=== PATIENT | female | born 1965 | race Caucasian/White ===

== ENCOUNTER 2017-01-24 11:21 | Emergency (ER) | payer MEDICARE, OTHER ==
[2017-01-24 11:36] VITALS: BP 147/91
[2017-01-24] MEDS ORDERED: ALPRAZolam 0.25 MG TABLET PO ONE (12:02)
[2017-01-24] MEDS ORDERED: ALPRAZolam 0.25 MG TABLET ONE (12:03)
--- NOTE | 2017-01-24 12:27 | ERNOTE ---
Psychological HPI - Date Date of Service: 01/24/17 - General Chief Complaint: Psychiatric Problem Source: Reports: patient Exam Limitations: Reports: no limitations - Immun/Allergies/Home Medications Allergies/Adverse Reactions: Allergies codeine Allergy (Verified 11/27/15 19:44) Home Medications: HOME MEDICATIONS Hydrocodone Bit/Acetaminophen [Hydrocodon-Acetaminophen 5-325] 1 each PO QID 07/12 [Last Taken Unknown] Fluticasone/Salmeterol [Advair 250-50 Diskus] 1 puff IH BID 10/11/15 [Last Taken Unknown] Ipratropium/Albuterol Sulfate [Combivent Respimat Inhal [place]] 1 puff IH QID [Last Taken Unknown] Levothyroxine Sodium [Synthroid] 125 mcg PO DAILY 10/11/15 [Last Taken Unknown] Pregabalin [Lyrica] 300 mg PO BID 10/11/15 [Last Taken Unknown] HYDROcodone/ACETAMINOPHEN [[place] 5-325 Tablet] 1 tab PO Q6H PRN #20 tab [Last Taken Unknown] predniSONE [Prednisone] 3 tab PO DAILY #9 tab 11/27/15 [Last Taken Unknown] Albuterol Sulfate [Proair Hfa] 1 - 2 puff IH Q4H PRN #1 inhaler 03/30/16 [Last Taken Unknown] Doxycycline Hyclate [Vibratab] 100 mg PO BID #20 tab 03/30/16 [Last Taken Unknown] predniSONE [Prednisone] 1 tab PO TID #15 tab 03/30/16 [Last Taken Unknown] Hydroxyzine HCl 50 mg PO Q6H PRN #12 tablet 01/24/17 [Last Taken Unknown] - History of Present Illness Narrative: 52yo, F, presents to ER for anxiety over the last several days. Her 11yo grandson had been staying with her recently. States she is very OCD and likes things to be a certain way, she is not feeling frustrated with the grandson, but more with her children. She is under care of [facility], Nicole Burkett is with her today. States they felt she needed something for her anxiety, but did not have any PRN rx. Pt states Lisa Mai's office was contacted and they advised she had been discharged from the office. She states she is very upset by this, as she has not seen Lisa Mai and does not know how she could be discharged from the office. She does admit to being discharged from Dr. Wagner's office in the past. She denies any feelings of self harm or harm to others, when asked about this states "I have grandkids I love very much , I'm not doing that shit." She has received Xanax in the past, when tx in [place] with good relief of anxiety symptoms. Time Seen by Provider: 01/24/17 11:45 Intent: Denies: suicide Associated Symptoms: Reports: agitated. Denies: hallucinating, suicidal thoughts - Patient's Past Medical History Patient History - Medical: Arthritis, Depression, Hypothyroidism Patient History - Cardiac/Respiratory: COPD Patient History - Cancer: Skin Patient History - Surgical Procedures: Hysterectomy, Total Knee Replacement Patient History - Other: None LMP (females 10-50): Menopausal - Social History Living Situations: home Abuse History: No History of abuse Psych History: Hx of Anxiety, Hx of Depression, Hx of Schizophrenia Smoking Status: Current every day smoker Have you smoked in the past 12 months: Yes Alcohol Use: none Drug Use: none - Immunizations Immunizations Up to Date: Yes Hx Pneumococcal Vaccination: No History of Influenza Vaccine: No Physical Exam - Physical Exam General Appearance: Present: wd/wn, alert, irritable Eye Exam: Normal inspection: bilateral, PERRL: bilateral, EOMI: bilateral, Eye drainage: bilateral, Eyelid inflammation: bilateral Neck: Present: normal inspection, nontender Respiratory: Present: no respiratory distress, wheezing - mild faint. 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 Pt states she is feeling improved and would like to go home. Discussed that Lisa Mai's office was closed for lunch. Pt states she wants to go home and does not want to wait for office to open to discuss options. Rechecked feelings of self harm and harm to others, she continues to deny. Advised to f/u with Dr. Alexander, until able to establish with psych. Pt verbalized understanding. - Results and Orders Patient's Lab Results:: I have reviewed the patient's lab results. - Vital Signs Patient's Vital Signs:: I have reviewed the patient's vital signs. Vital Signs: Vital Signs 01/24/17 11:25 Temperature 36.8 C Pulse Rate 95 Respiratory 16 Rate Blood Pressure 147/91 O2 Sat by Pulse 98 Oximetry - Progress/Reassessment Chief Complaint: Psychiatric Problem Departure Clinical Impression: Anxiety - Departure Disposition: Home self-care Condition: Good Instructions: Panic Attacks, [id number] Print Language: Ecuadorean Additional Instructions: Recommend establishing care with a psychiatric office. Please follow up with your primary care doctor for recheck and medication management until you are able to get in with a psychiatric office. Return to ER immediately if symptoms worsen or you have feelings of self harm or harm to others Referrals: Jorden Alexander MD [Primary Care Provider] - Prescriptions: Hydroxyzine HCl 50 mg PO Q6H PRN #12 tablet PRN Reason: Anxiety
== END 2017-01-24 12:42 | disposition home or self-care (01) ==
LOC: ER 11:21
DX: F41.9 Anxiety disorder, unspecified (principal)

== ENCOUNTER 2017-02-19 15:23 | Emergency (ER) | payer MEDICARE, OTHER ==
[2017-02-19] MEDS ORDERED: ALBUTEROL SULFATE/IPRATROPIUM 3 ML NEBU IH ONE ×2 (15:33→15:40)
[2017-02-19] MEDS ORDERED: HYDROmorphone HCL 1 MG/ML DISP.SYRIN IV ONE (15:37)
[2017-02-19] MEDS ORDERED: LORazepam 2 MG/ML DISP.SYRIN IV ONE (15:37)
[2017-02-19] MEDS ORDERED: LORazepam 2 MG/ML DISP.SYRIN ONE (15:40)
[2017-02-19] MEDS ORDERED: HYDROmorphone HCL 1 MG/ML DISP.SYRIN ONE (15:40)
[2017-02-19 15:51] LABS: Hematocrit 41.4 % (37.0-47.0); Hemoglobin 13.9 gm/dL (12.5-16.0); Mean Cell Volume 90.8 fl (78-100); Mean Corpuscular Hemoglobin 30.5 pg (27-31); Mean Corpuscular Hgb Conc 33.6 g/dl (32-36); Mean Platelet Volume 10.7 fl (6.0-9.5); Neutrophil # 3.7 K/mm3 (1.3-6.0); Neutrophil % 56.2 % (42-75.0); Platelet Count 172 K/mm3 (150-450); Red Blood Count 4.56 M/mm3 (4.2-5.4); White Blood Count 6.6 K/mm3 (4.0-10.5)
[2017-02-19 16:08] LABS: ALT 13 U/L (19-67); AST 14 U/L (0-48); Albumin * 3.5 gm/dl (3.4-5.0); Alkaline Phosphatase * 63 U/L (50-170); Anion Gap 7.9 mmol/L (6.8-13.8); Bilirubin, Total 0.3 mg/dL (0.0-1.1); Blood Urea Nitrogen 6 mg/dL (3-23); Ca. Corrected For Albumin 8.8 mg/dL (8.4-10.2); Calcium * 8.7 mg/dL (7.9-10.9); Carbon Dioxide 32.2 mmol/L (24-32.6); Chloride 109 mmol/L (97-106); Glucose * 93 mg/dL (70-110); Potassium 4.1 mmol/L (3.4-4.6); Sodium 145 mmol/L (132-142); Total Protein 6.6 gm/dL (6.2-8.2); Troponin I Less than 0.017 ng/ml (0.00-0.10)
[2017-02-19 17:43] VITALS: BP 139/96
--- NOTE | 2017-02-19 17:43 | ERNOTE ---
Chest Pain/Cardiac HPI Date of Service: 02/19/17 Chief Complaint: Chest Pain Time Seen by Provider: 02/19/17 15:28 Source: patient Exam Limitations: no limitations Immunizations: IMMUNIZATION HX Immunizations Up to Date Yes History of Influenza Vaccine No Hx Pneumococcal Vaccination No Allergies/Adverse Reactions: Allergies codeine Allergy (Verified 02/19/17 15:32) Home Medications: HOME MEDICATIONS Hydrocodone Bit/Acetaminophen [Hydrocodon-Acetaminophen 5-325] 1 each PO QID 07/12 [Last Taken Unknown] Fluticasone/Salmeterol [Advair 250-50 Diskus] 1 puff IH BID 10/11/15 [Last Taken Unknown] Ipratropium/Albuterol Sulfate [Combivent Respimat Inhal [place]] 1 puff IH QID [Last Taken Unknown] Levothyroxine Sodium [Synthroid] 125 mcg PO DAILY 10/11/15 [Last Taken Unknown] Pregabalin [Lyrica] 300 mg PO BID 10/11/15 [Last Taken Unknown] HYDROcodone/ACETAMINOPHEN [[place] 5-325 Tablet] 1 tab PO Q6H PRN #20 tab [Last Taken Unknown] predniSONE [Prednisone] 3 tab PO DAILY #9 tab 11/27/15 [Last Taken Unknown] Albuterol Sulfate [Proair Hfa] 1 - 2 puff IH Q4H PRN #1 inhaler 03/30/16 [Last Taken Unknown] Doxycycline Hyclate [Vibratab] 100 mg PO BID #20 tab 03/30/16 [Last Taken Unknown] predniSONE [Prednisone] 1 tab PO TID #15 tab 03/30/16 [Last Taken Unknown] Hydroxyzine HCl 50 mg PO Q6H PRN #12 tablet 01/24/17 [Last Taken Unknown] HYDROcodone/ACETAMINOPHEN [[place] 10-325 Tablet] 1 each PO Q12H PRN #15 tablet [Last Taken Unknown] Narrative: Patient presents to the ED with right sided CP after a fall. She relates she has frequent falls and fell yesterday onto her right chest, hitting a counter. She has been having pain right chest ever since then. The pain began with a traumatic injury to the chest. It has been constant since yesterday. She relates it hurts to touch her chest and to cough. She does not have any pain medications at home. She has not seen anyone else for this. She relates chronic orthopedic pains. No fever. No head injury or other injuries. Chronic neck and back pain, no different from usual. Pain can be severe, especially with palpation and cough. No abdominal pain. Timing: constant Severity/Quality: sharp Location: other - right chest Chest Pain Radiation: no radiation Activities at Onset: other - fall Modifying Factors - Improves: Present: nothing Modifying Factors - Worsens: Present: coughing, other - palpation Associated Symptoms: Absent: syncope, fever/chills, vomiting, abdominal pain, weakness Prior Treatment: Denies: recently seen Review of Systems - Review of Systems Constitutional: Absent: fever EYE: Present: no symptoms reported ENT: Present: no symptoms reported Respiratory: Present: cough Cardiology: Present: See HPI Gastrointestinal/Abdominal: Absent: abdominal pain Genitourinary: Absent: dysuria Musculoskeletal: Present: other - chronic orthopedic pains. All Other Systems: All systems neg except as marked - Patient's Past Medical History Patient History - Medical: Arthritis, Depression, Hypothyroidism Patient History - Cardiac/Respiratory: COPD Patient History - Cancer: Skin Patient History - Surgical Procedures: Hysterectomy, Total Knee Replacement Patient History - Other: None - Social History Living Situations: home Abuse History: No History of abuse Psych History: Hx of Anxiety, Hx of Depression, Hx of Schizophrenia Alcohol Use: none Drug Use: none - Immunizations Immunizations Up to Date: Yes Hx Pneumococcal Vaccination: No History of Influenza Vaccine: No Physical Exam - Physical Exam General Appearance: Present: wd/wn, alert, other - distress secondary to pain with palpation of ribs on right side of chest. Eye Exam: Normal inspection: bilateral Ears, Nose, Throat: Present: normal ENT inspection Neck: Present: normal inspection Respiratory: Present: no respiratory distress, no accessory muscle use, chest tenderness, other - mild scattered wheezes. There is clearly reproducible tenderness right chest wall. Palpation of the chest wall where she fell completely reproduces her pain and the Sx she presents for. Cardiovascular/Chest: Present: regular rate, rhythm, normal peripheral pulses Gastrointestinal/Abdominal: Present: normal bowel sounds, nontender, soft, no organomegaly. Absent: tenderness Extremity Exam: Present: other - no DVT findings Neurological Exam: Present: alert, normal mood/affect, no motor/sensory deficits Skin Exam: Present: other - no lacerations or bruising ED Progress - Results and Orders Patient's Lab Results:: I have reviewed the patient's lab results. - Vital Signs Patient's Vital Signs:: I have reviewed the patient's vital signs. Vital Signs: Vital Signs 02/19/17 02/19/17 02/19/17 15:27 15:36 15:49 Temperature 36.8 C Pulse Rate 110 H 102 H 95 Respiratory 22 H 24 H Rate Blood Pressure 142/91 125/73 O2 Sat by Pulse 92 95 Oximetry 02/19/17 02/19/17 02/19/17 15:51 16:09 16:40 Temperature Pulse Rate 96 97 89 Respiratory 24 H 22 H 18 Rate Blood Pressure 127/81 123/85 O2 Sat by Pulse 91 92 Oximetry 02/19/17 17:10 Temperature Pulse Rate 78 Respiratory 15 Rate Blood Pressure 125/79 O2 Sat by Pulse 98 Oximetry - EKG EKG read: Reviewed by me EKG Comments: Sinus tach rate 105. non-specific ST/T wave changes, no STEMI. - X-Ray X-Ray #1 X-Ray: chest Interpretation: Reviewed by me X-ray Comments: Reviewed radiology report. No acute process. - Progress/Reassessment Chief Complaint: Chest Pain Progress:: Improved Progress Note-Subjective: 02/19/17 17:38 No suggestion of PTX, PE, ACS or other acute life threat. Constant pain over 1 day with no STEMI and no trop elevation. Nothing to suggest ACS. D-dimer in normal range, clinically nothign too suggest PE or aortic dissection. No indication for CT. Clinically this is all musculoskeletal pain from her fall without apparent complication. Patient states she can take hydrocodone without reaction or allergy. 02/19/17 17:42 Departure - Departure Clinical Impression: Chest wall pain Disposition: Home self-care Condition: Stable Instructions: Chest Wall Pain, [id number] Additional Instructions: Rest. Follow-up with primary doctor this week. No driving with pain medications. Return for trouble breathing, fever or if your condition worsens or changes in any way. Prescriptions: HYDROcodone/ACETAMINOPHEN [[place] 10-325 Tablet] 1 each PO Q12H PRN #15 tablet PRN Reason: Pain
== END 2017-02-19 17:49 | disposition home or self-care (01) ==
LOC: ER 15:23
DX: R07.89 Other chest pain (principal); Z85.828 Personal history of other malignant neoplasm of skin; E03.9 Hypothyroidism, unspecified

== ENCOUNTER 2017-02-21 11:22 | Emergency (ER) | payer MEDICARE, OTHER ==
[2017-02-21 11:34] VITALS: BP 178/99
[2017-02-21] MEDS ORDERED: ONDANSETRON 4 MG TAB.RAPDIS PO ONE (11:51)
--- NOTE | 2017-02-21 11:59 | ERNOTE ---
Medical Problem HPI - Narrative Date of Service: 02/21/17 - General Chief Complaint: General Assessment Time Seen by Provider: 02/21/17 11:37 Source: patient, RN notes reviewed, old records Exam Limitations: other - difficulty giving a clear history - Immun/Allergies/Home Medications Immunizations: IMMUNIZATION HX Immunizations Up to Date Yes History of Influenza Vaccine No Hx Pneumococcal Vaccination No Allergies/Adverse Reactions: Allergies codeine Allergy (Verified 02/21/17 11:34) Home Medications: HOME MEDICATIONS Hydrocodone Bit/Acetaminophen [Hydrocodon-Acetaminophen 5-325] 1 each PO QID 07/12 [Last Taken Unknown] Fluticasone/Salmeterol [Advair 250-50 Diskus] 1 puff IH BID 10/11/15 [Last Taken Unknown] Ipratropium/Albuterol Sulfate [Combivent Respimat Inhal [place]] 1 puff IH QID [Last Taken Unknown] Levothyroxine Sodium [Synthroid] 125 mcg PO DAILY 10/11/15 [Last Taken Unknown] Pregabalin [Lyrica] 300 mg PO BID 10/11/15 [Last Taken Unknown] HYDROcodone/ACETAMINOPHEN [[place] 5-325 Tablet] 1 tab PO Q6H PRN #20 tab [Last Taken Unknown] predniSONE [Prednisone] 3 tab PO DAILY #9 tab 11/27/15 [Last Taken Unknown] Albuterol Sulfate [Proair Hfa] 1 - 2 puff IH Q4H PRN #1 inhaler 03/30/16 [Last Taken Unknown] Doxycycline Hyclate [Vibratab] 100 mg PO BID #20 tab 03/30/16 [Last Taken Unknown] predniSONE [Prednisone] 1 tab PO TID #15 tab 03/30/16 [Last Taken Unknown] Hydroxyzine HCl 50 mg PO Q6H PRN #12 tablet 01/24/17 [Last Taken Unknown] HYDROcodone/ACETAMINOPHEN [[place] 10-325 Tablet] 1 each PO Q12H PRN #15 tablet [Last Taken Unknown] - History of Present History Narrative: 52 y/o female ambulatory to the ED for an "allergic reaction." She noticed that she had red, circular lesions on her chest and abdomen that were irritated this morning. She was seen here 2 days ago for chest pain. She had EKG electrodes in these locations at that time. She also reports having the same symptoms that she was having 2 days ago. She contacted her PCP and her pharmacy regarding the lesions and her other symptoms (nausea, headache, and dizziness - which she reports that she has most of the time) and was told to come here because she was having an allergic reaction. She was started on Prazosin last week. Review of Systems - Review of Systems Constitutional: Present: fatigue, malaise EYE: Present: no symptoms reported ENT: Absent: nose congestion, throat swelling Respiratory: Present: cough. Absent: shortness of breath, wheezing, stridor Cardiology: Absent: palpitations, syncope Gastrointestinal/Abdominal: Present: nausea, eating less, drinking less. Absent : vomiting, diarrhea Genitourinary: Present: no symptoms reported Musculoskeletal: Present: muscle pain, neck pain. Absent: joint pain Skin: Present: lesions. Absent: rash, lumps Neurological: Present: headache, dizziness/light-headedness Endocrine: Present: no symptoms reported Hematologic/Lymphatic: Present: no symptoms reported Psych: Present: emotional problems - Patient's Past Medical History Patient History - Medical: Arthritis, Depression, Hypothyroidism Patient History - Cardiac/Respiratory: COPD Patient History - Cancer: Skin Patient History - Surgical Procedures: Hysterectomy, Total Knee Replacement Patient History - Other: None LMP (females 10-50): Menopausal - Social History Living Situations: home Abuse History: No History of abuse Psych History: Hx of Anxiety, Hx of Depression, Hx of Schizophrenia Smoking Status: Current every day smoker Alcohol Use: none Drug Use: none - Immunizations Immunizations Up to Date: Yes Hx Pneumococcal Vaccination: No History of Influenza Vaccine: No Physical Exam - Physical Exam General Appearance: Present: alert, anxious, thin, other - disheveled, unable to lay still Eye Exam: Normal inspection: bilateral, PERRL: bilateral Ears, Nose, Throat: Present: normal ENT inspection Neck: Present: normal inspection, supple, full range of motion, tender lateral. Absent: tender posterior midline Respiratory: Present: no respiratory distress, no accessory muscle use, rhonchi - scattered Cardiovascular/Chest: Present: regular rate, rhythm, no murmur, normal peripheral pulses Gastrointestinal/Abdominal: Present: nontender, nondistended, soft Extremity Exam: Present: normal inspection, normal range of motion, no edema Neurological Exam: Present: alert, oriented, no motor/sensory deficits. Absent : normal mood/affect Skin Exam: Present: normal color, warm/dry, other - Circular excoriations at the sites of EKG patches from previous visit ED Progress - Vital Signs Patient's Vital Signs:: I have reviewed the patient's vital signs. Vital Signs: Vital Signs 02/21/17 11:30 Temperature 36.9 C Pulse Rate 78 Respiratory 19 Rate Blood Pressure 178/99 O2 Sat by Pulse 97 Oximetry - Progress/Reassessment Chief Complaint: General Assessment Progress:: Unchanged Departure - Departure Clinical Impression: Medication side effects Contact dermatitis due to adhesives Qualifiers: Contact dermatitis type: unspecified Qualified Code(s): L23.1 - Allergic contact dermatitis due to adhesives Disposition: Home Follow Up Needed Condition: Stable Instructions: Drug Allergy, [id number] Additional Instructions: Stop Prazosin (minipress) until you see your doctor Use Cortisone 10 cream for skin irritation See information regarding drug allergy - this is NOT what you are experiencing Referrals: Jorden Alexander MD [Primary Care Provider] -
[2017-02-21] MEDS ORDERED: ONDANSETRON 4 MG TAB.RAPDIS ONE (12:11)
== END 2017-02-21 12:14 | disposition home or self-care (01) ==
LOC: ER 11:22
DX: T44.6X5A Adverse effect of alpha-adrenoreceptor antagonists, initial encounter (principal); L23.1 Allergic contact dermatitis due to adhesives; Z72.0 Tobacco use; Z85.828 Personal history of other malignant neoplasm of skin

== ENCOUNTER 2017-07-16 09:20 | Emergency (ER) | payer MEDICARE, OTHER ==
[2017-07-16 09:31] VITALS: BP 149/70
[2017-07-16] MEDS ORDERED: HYDROmorphone HCL 1 MG/ML DISP.SYRIN IM ONE (09:42)
[2017-07-16] MEDS ORDERED: HYDROmorphone HCL 1 MG/ML DISP.SYRIN ONE (09:50)
--- NOTE | 2017-07-16 10:49 | ERNOTE ---
Back Pain ER HPI Date of Service: 07/16/17 Presenting Symptoms: injury/pain to back, hx chronic back pain Time Seen by Provider: 07/16/17 09:35 Exam Limitations: no limitations Immunizations: IMMUNIZATION HX Immunizations Up to Date Yes History of Influenza Vaccine No Hx Pneumococcal Vaccination No Allergies/Adverse Reactions: Allergies codeine Allergy (Verified 07/16/17 09:31) Home Medications: HOME MEDICATIONS Fluticasone/Salmeterol [Advair 250-50 Diskus] 1 puff IH BID 10/11/15 [Last Taken Unknown] Ipratropium/Albuterol Sulfate [Combivent Respimat [place]] 1 puff IH QID [Last Taken Unknown] Levothyroxine Sodium [Synthroid] 125 mcg PO DAILY 10/11/15 [Last Taken Unknown] Pregabalin [Lyrica] 300 mg PO BID 10/11/15 [Last Taken Unknown] Albuterol Sulfate [Proair Hfa] 1 - 2 puff IH Q4H PRN #1 inhaler 03/30/16 [Last Taken Unknown] Hydroxyzine HCl 50 mg PO Q6H PRN #12 tablet 01/24/17 [Last Taken Unknown] Cyclobenzaprine HCl 10 mg PO TID #30 tablet 07/16/17 [Last Taken Unknown] HYDROcodone/ACETAMINOPHEN [[place] 5-325] 1 tab PO Q4H PRN #20 tab 07/16/17 [Last Taken Unknown] Roflumilast [Daliresp] 500 mcg PO DAILY 07/16/17 [Last Taken Unknown] Timing: Reports: constant, getting worse Quality/Severity: Reports: moderate Location of pain: Reports: lower back Activities at Onset: Reports: activity Recent Injury?: Reports: no Possible Precipitating Factor: Reports: lifting, turning/bending Modifying Factors - (Worsens): Reports: movement to right, movement to left Associated Symptoms: Reports: other - cough Review of Systems - Review of Systems Constitutional: Present: See HPI EYE: Present: no symptoms reported ENT: Present: no symptoms reported Respiratory: Present: no symptoms reported Cardiology: Present: no symptoms reported Gastrointestinal/Abdominal: Present: no symptoms reported Genitourinary: Present: no symptoms reported Musculoskeletal: Present: no symptoms reported Skin: Present: no symptoms reported Endocrine: Present: no symptoms reported Hematologic/Lymphatic: Present: no symptoms reported Psych: Present: no symptoms reported All Other Systems: All systems neg except as marked - Patient's Past Medical History Patient History - Medical: Arthritis, Depression, Hypothyroidism Patient History - Cardiac/Respiratory: COPD Patient History - Cancer: No Hx of Cancer, Skin Patient History - Surgical Procedures: No surgical history, Hysterectomy, Total Knee Replacement Patient History - Other: None LMP (females 10-50): unknown - Family History Family History:: no untoward family reactions to anesthesia, no family history of clotting disorders - Social History Living Situations: other Abuse History: No History of abuse Psych History: Hx of Anxiety, Hx of Depression, Hx of Bipolar Disorder, Hx of Schizophrenia Smoking Status: Current every day smoker Have you smoked in the past 12 months: Yes Do you dip or chew tobacco: No Alcohol Use: none Drug Use: none - Immunizations Immunizations Up to Date: Yes Hx Pneumococcal Vaccination: No History of Influenza Vaccine: No Physical Exam - Physical Exam General Appearance: Present: moderate distress Head Exam: Present: normal inspection, no evidence of injury Eye Exam: Normal inspection: bilateral, PERRL: bilateral, EOMI: bilateral Ears, Nose, Throat: Present: normal ENT inspection Neck: Present: normal inspection Respiratory: Present: no respiratory distress, normal breath sounds, no accessory muscle use, chest nontender, lungs clear Cardiovascular/Chest: Present: regular rate, rhythm, no murmur, normal peripheral pulses Peripheral Pulses: N=norm/S=strong/W=weak/B=bound/A=absent: Carotid (R): Normal , Carotid (L): Normal, Radial (R): Normal, Radial (L): Normal, Femoral (R): Normal, Femoral (L): Normal, Dorsalis-pedis (R): Normal, Dorsalis-pedis (L): Normal Gastrointestinal/Abdominal: Present: normal bowel sounds, nontender, nondistended, soft, no organomegaly Back Exam: Present: vertebral tenderness, decreased range of motion, muscle spasm Extremity Exam: Present: normal inspection, non-tender, normal range of motion, no edema Neurological Exam: Present: alert, oriented, normal mood/affect, no motor/ sensory deficits DTR: N=norm/NB=norm/brisk/A=abs/DD=dull/dimin/HC=hyperactive: Bicep (R): Normal , Bicep (L): Normal, Tricep (R): Normal, Tricep (L): Normal, Knee (R): Normal, Knee (L): Normal, Ankle (R): Normal, Ankle (L): Normal Skin Exam: Present: normal color, warm/dry Lymphatic Exam: Present: no adenopathy ED Progress - Vital Signs Patient's Vital Signs:: I have reviewed the patient's vital signs. Vital Signs: Vital Signs 07/16/17 09:25 Temperature 36.3 C L Pulse Rate 69 Respiratory 16 Rate Blood Pressure 149/70 O2 Sat by Pulse 99 Oximetry - X-Ray X-Ray #1 X-Ray: chest - lumbars reveal no acute process.chest x-ray negative - Progress/Reassessment Chief Complaint: Back Pain - Transfer of Care Expected Disposition: Discharge Departure Clinical Impression: Acute exacerbation of chronic low back pain - Departure Disposition: Home self-care Condition: Fair Instructions: Low Back Sprain With Rehab-[facility] Referrals: Jorden Alexander MD [Primary Care Provider] - Prescriptions: Cyclobenzaprine HCl 10 mg PO TID #30 tablet HYDROcodone/ACETAMINOPHEN [[place] 5-325] 1 tab PO Q4H PRN #20 tab PRN Reason: Pain
== END 2017-07-16 11:05 | disposition home or self-care (01) ==
LOC: ER 09:20
DX: M54.5 Low back pain (principal); G89.29 Other chronic pain; J44.9 Chronic obstructive pulmonary disease, unspecified; Z85.828 Personal history of other malignant neoplasm of skin; F17.200 Nicotine dependence, unspecified, uncomplicated